=== PATIENT | female | born 1980 | race Caucasian/White ===

== ENCOUNTER 2017-10-06 19:51 | Emergency (ER) | payer OTHER ==
[2017-10-06 20:11] VITALS: BP 121/67; PULSE 103; TEMP 98.4; BMI 31.6
--- NOTE | 2017-10-06 20:15 | PDOC ---
Rapid Medical Evaluation Chief Complaint: Pain Time Seen by Provider: 10/06/17 20:10 Medical Evaluation: Allergies Allergy/AdvReac Type Severity Reaction Status Date / Time No Known Allergies Allergy Verified 10/06/17 20:09 10/06/17 20:10 The patient presents with a chief complaint of: [Left Lower abdominal pain since this am with nausea. Feels tightening around the back recent US showed " some bleeding"] I have performed a brief in-person evaluation of this patient. Pertinent physical exam findings: vss, [LLQ Pain. No CVa tenderness. Lungs clear.] I have ordered the following: [UA, UC, Beta. Type and screen, ] The patient will proceed to the ED for further evaluation. Discharge Disposition - Diagnosis Abdominal pain - Referrals - Patient Instructions - Post Discharge Activity
[2017-10-06 20:42] LABS: BASO % 0.3 % (0-2.0); EOS % 0.7 % (0-4.5); HEMATOCRIT 33.2 % (32.4-45.2); HEMOGLOBIN 11.2 GM/dL (10.7-15.3); LYMPH % 21.9 % (8-40); MCH 29.5 pg (25.7-33.7); MCHC 33.6 g/dl (32.0-36.0); MEAN CELL VOLUME 87.9 fl (80-96); MEAN PLT VOLUME 6.6 fl (7.5-11.1); MONO % 7.5 % (3.8-10.2); NEUT % 69.6 % (42.8-82.8); PLATELET COUNT 392 K/MM3 (134-434); RBC 3.78 M/mm3 (3.60-5.2); RDW 15.8 % (11.6-15.6)
[2017-10-06 20:45] LABS: URINE APPEARANCE SLCLOUDY; URINE BILIRUBIN NEGATIVE (NEGATIVE); URINE BLOOD 1+ (NEGATIVE); URINE COLOR YELLOW; URINE GLUCOSE (UA) NEGATIVE (NEGATIVE); URINE KETONE NEGATIVE (NEGATIVE); URINE NITRITE NEGATIVE (NEGATIVE); URINE PROTEIN NEGATIVE (NEGATIVE)
[2017-10-06 20:47] LABS: URINE LEUK ESTERASE 1+ (NEGATIVE)
[2017-10-06] MEDS ORDERED: ACETAMINOPHEN 325 MG TABLET (FP) PO ONE (21:22)
--- NOTE | 2017-10-06 21:31 | PDOC ---
History of Present Illness - General Chief Complaint: Pain Stated Complaint: ABD PAIN (17 WKS ) Time Seen by Provider: 10/06/17 20:10 - History of Present Illness Initial Comments: Ms Marshall is a 27yo w/ an IUP @17weeks who presents with sudden onset sharp LLQ pain. Pain started today, was initially intermittent, but is now constant. Pain radiates to the groin, also associated with bilateral lower back pain. Pain is worse w/ movements, some relief w/ Tylenol. Had prior kidney stones that passed spontaneously, current pain is similar. Patient had an ultrasound this that confirmed intrauterine location. She endorses minimal vaginal spotting present throughout the , no increase in vaginal bleeding, no fluid, no discharge. She denies dysuria, frequency, urgency, fevers chills. She had an appendectomy as a child. She denies CP, SOB, nausea, vomitting, diarrhea, constipation PMD - Dr Essence Hooper SH - Denies alcohol, smoking, drugs Allergies - NKDA Past History - Past Medical History Allergies/Adverse Reactions: Allergies Allergy/AdvReac Type Severity Reaction Status Date / Time No Known Allergies Allergy Verified 10/06/17 20:09 Home Medications: Ambulatory Orders No Home Medications 0 dose .ROUTE UTDICT 03/05/14 COPD: No - Surgical History Appendectomy: Yes - Immunization History Immunization Up to Date: Yes - Suicide/Smoking/Psychosocial Hx Smoking History: Never smoked Number of Cigarettes Smoked Daily: 0 Hx Alcohol Use: No Drug/Substance Use Hx: No Substance Use Type: None Hx Substance Use Treatment: No *Physical Exam - Vital Signs Last Vital Signs Temp Pulse Resp BP Pulse Ox 98.4 F 103 H 18 121/67 99 10/06/17 20:09 10/06/17 20:09 10/06/17 20:09 10/06/17 20:09 10/06/17 20:09 - Physical Exam Comments: GEN: AAOx3, NAD, Lying comfortably HEENT: PERRLA, EOMi CV: S1, S2, RRR LUNG: CTABL ABD: Gravid, Soft, NT, ND MSK: No edema, no erythema NEURO: CN 2-12 intact ED Treatment Course - LABORATORY CBC & Chemistry Diagram: 10/06/17 20:22 10/06/17 20:22 - ADDITIONAL ORDERS Additional order review: Laboratory Results 10/06/17 20:15 Urine Color Yellow Urine Appearance Slcloudy Urine pH 6.0 Ur Specific [place] 1.025 Urine Protein Negative Urine Glucose (UA) Negative Urine Ketones Negative Urine Blood 1+ H Urine Nitrite Negative Urine Bilirubin Negative Urine Urobilinogen 2.0 H Ur Leukocyte Esterase 1+ H 10/06/17 20:22 RBC 3.78 MCV 87.9 MCHC 33.6 RDW 15.8 H D MPV 6.6 L Neutrophils % 69.6 Lymphocytes % 21.9 Monocytes % 7.5 Eosinophils % 0.7 Basophils % 0.3 - RADIOLOGY Radiology Studies Ordered: Category Date Time Status KIDNEY / RENAL US [US] Stat Ultrasound 10/06/17 21:21 Ordered PELVIC / BLADDER US [US] Stat Ultrasound 10/06/17 21:21 Ordered Medical Decision Making - Medical Decision Making 37yo w/ IUP @ 17weeks presents with sharp LLQ pain. Labs drawn in [facility]ME. Shows mild leukocytosis. UA 1+ leuk esterase, 1+ blood DDx include: Nephrolithiasis, UTI, Round ligament pain -- Pelvic/Bladder/Renal sono -- IVNS 1L Bolus -- Tylenol for pain, if not controlled, will give morphine *DC/Admit/Observation/Transfer Diagnosis at time of Disposition: Round ligament pain - Discharge Dispostion Disposition: HOME Condition at time of disposition: Improved Admit: No - Referrals Referrals: Essence Hooper [Primary Care Provider] - 1 week - Patient Instructions Printed Discharge Instructions: DI for Abdominal Pain -- Early - Post Discharge Activity Forms/Work/School Notes: Back to Work
[2017-10-06 21:39] LABS: EPI CELLS FEW /HPF (FEW); URINE BACTERIA RARE /hpf (NONE SEEN); URINE MUCUS MODERATE
[2017-10-06] MEDS ORDERED: SODIUM CHLORIDE 1,000 ML IV STA (21:41)
[2017-10-06 21:48] LABS: ALBUMIN 2.9 g/dl (3.4-5.0); ALK PHOS 64 U/L (45-117); ANION GAP 7 (8-16); BILIRUBIN,TOTAL 0.2 mg/dL (0.2-1.0); BLOOD UREA NITROGEN 10 mg/dL (7-18); CALCIUM 7.7 mg/dL (8.5-10.1); CHLORIDE 107 mmol/L (98-107); CO2 25 mmol/L (21-32); CREATININE 0.5 mg/dL (0.55-1.02); GLUCOSE,RANDOM 83 mg/dL (74-106); POTASSIUM 3.6 mmol/L (3.5-5.1); SGOT/AST 13 U/L (15-37); SGPT/ALT 18 U/L (12-78); SODIUM 139 mmol/L (136-145); TOT PROT 6.6 g/dl (6.4-8.2)
[2017-10-06] MEDS ORDERED: ACETAMINOPHEN 325 MG TABLET (FP) ONE (22:19)
--- NOTE | 2017-10-06 23:00 | PDOC ---
Attending Attestation - Resident Resident Name: Kamini Avery - ED Attending Attestation I have performed the following: I have examined & evaluated the patient, The case was reviewed & discussed with the resident, I agree w/resident's findings & plan, Exceptions are as noted - HPI HPI: 10/06/17 22:57 37yoF at 17w by dates presents w/ acute onset of LLQ pain today. Hx of kid stones, no fevers, hx of appendectomy, NO vag bleeding/discharge (had some spotting around 10w gestation), no n/v/d, no cp/sob, no syncope, + active fetus , no cramping. Pain is CONSTANT and POSITIONAL, relieved by hunching forward in chair. pmhx as per res note shx as per res note NKDA VS reviewed, as charted NAD gravid, mild LLQ ttp, no guarding, no rebound no cvat A: 37yoF @ 17w gestation w/ constant llq pain x today, afebrile. hx of kid stones, ddx kid stone vs round ligament pain - ua - renal sono - tylenol, ivf - dispo per results. - Physicial Exam PE: 10/06/17 23:00 see above - Medical Decision Making 10/06/17 23:00 see above
== END 2017-10-06 23:40 | disposition home or self-care (01) ==
LOC: JER 19:51
DX: O26.892 Other specified pregnancy related conditions, second trimester (principal); R10.2 Pelvic and perineal pain; Z3A.17 17 weeks gestation of pregnancy
CPT/HCPCS: 36415; 76775-TC; 76856-TC; 80053; 81003; 81015; 84702; 85025; 86850; 86900; 86901; 87086; 99282-25

== ENCOUNTER 2019-05-31 09:07 | Emergency (ER) | payer SELFPAY ==
[2019-05-31 09:33] VITALS: BMI 30.7
[2019-05-31 11:06] LABS: BASO % 0.4 % (0-2.0); EOS % 0.8 % (0-4.5); HEMATOCRIT 37.9 % (32.4-45.2); HEMOGLOBIN 12.8 GM/dL (10.7-15.3); LYMPH % 26.9 % (8-40); MCH 30.8 pg (25.7-33.7); MCHC 33.9 g/dl (32.0-36.0); MEAN CELL VOLUME 90.8 fl (80-96); MEAN PLT VOLUME 6.6 fl (7.5-11.1); MONO % 7.9 % (3.8-10.2); PLATELET COUNT 390 K/MM3 (134-434); RBC 4.17 M/mm3 (3.60-5.2); RDW 12.5 % (11.6-15.6); WHITE BLOOD COUNT 10.7 K/mm3 (4.0-10.0)
[2019-05-31 11:37] LABS: ALBUMIN 3.5 g/dl (3.4-5.0); BILIRUBIN,TOTAL 0.4 mg/dL (0.2-1); BLOOD UREA NITROGEN 17.2 mg/dL (7-18); CALCIUM 8.6 mg/dL (8.5-10.1); CREATININE 0.7 mg/dL (0.55-1.3); POTASSIUM 3.7 mmol/L (3.5-5.1)
--- NOTE | 2019-05-31 11:40 | PDOC ---
History of Present Illness - General Chief Complaint: Pain Stated Complaint: CHEST PAIN Time Seen by Provider: 05/31/19 10:23 History Source: Patient Exam Limitations: No Limitations - History of Present Illness Initial Comments: 05/31/19 10:27 39-year-old female presents to ED with complaints of lower extremity edema intermittently over the past few months worse around her menstrual cycle. Patient also complaining of left arm pain intermittently for the past 3 months that radiated to her left chest 3 days ago. Patient states has been under a lot of stress going through a divorce and feels overwhelmed and anxious at times. Patient denies weight change, difficulty breathing, chest pain, palpitations, dizziness, rash, heavy menstrual cycle, recent travel, or recent illness. Is this a multiple visit Asthma Patient?: No Timing/Duration: other Severity: mild Associated Symptoms: reports: denies symptoms Past History - Travel Traveled outside of the country in the last 30 days: No Close contact w/someone who was outside of country & ill: No - Past Medical History Allergies/Adverse Reactions: Allergies Allergy/AdvReac Type Severity Reaction Status Date / Time No Known Allergies Allergy Verified 05/31/19 09:33 Home Medications: Ambulatory Orders No Home Medications 0 dose .ROUTE UTDICT 03/05/14 COPD: No - Surgical History Appendectomy: Yes - Immunization History Immunization Up to Date: Yes - Suicide/Smoking/Psychosocial Hx Smoking History: Never smoked Number of Cigarettes Smoked Daily: 0 Information on smoking cessation initiated: No Hx Alcohol Use: No Drug/Substance Use Hx: No Substance Use Type: None Hx Substance Use Treatment: No Patient Lives Alone: No Lives with/in: spouse/SO Review of Systems - Review of Systems Able to Perform ROS?: No Is the patient limited Indian proficient: No Constitutional: No: Symptoms Reported HEENTM: No: Symptoms Reported Respiratory: No: Symptoms reported Cardiac (ROS): Yes: Edema ABD/GI: No: Symptoms Reported : No: Symptoms Reported Musculoskeletal: Yes: Muscle Pain (sheba legs and left arm) Integumentary: No: Symptoms Reported Neurological: No: Symptoms reported Psychiatric: Yes: Stressors, Sleep Pattern Change, Change in Appetite Endocrine: No: Symptoms Reported Hematologic/Lymphatic: No: Symptoms Reported *Physical Exam - Vital Signs Last Vital Signs Temp Pulse Resp BP Pulse Ox 98.2 F 91 H 18 108/63 100 05/31/19 09:32 05/31/19 09:32 05/31/19 09:32 05/31/19 09:32 05/31/19 09:32 - Physical Exam General Appearance: Yes: Nourished, Appropriately Dressed. No: Apparent Distress HEENT: negative: Pale Conjunctivae Neck: positive: Normal Thyroid, Supple Respiratory/Chest: positive: Lungs Clear, Normal Breath Sounds. negative: Respiratory Distress, Accessory Muscle Use Cardiovascular: positive: Regular Rhythm, Regular Rate. negative: Murmur Gastrointestinal/Abdominal: positive: Soft. negative: Tenderness Extremity: positive: Normal Capillary Refill, Normal Inspection, Normal Range of Motion. negative: Tender, Pedal Edema Integumentary: positive: Normal Color, Warm, Moist Neurologic: positive: Motor Strength 5/5 (ambulatory) Heart Score/ECG Review - ECG Intrepretation Rhythm: Regular Rhythm (Rate 86, sinus rhythm interval is regular. No ST elevation or depression.) ED Treatment Course - LABORATORY CBC & Chemistry Diagram: 05/31/19 10:44 05/31/19 10:44 - ADDITIONAL ORDERS Additional order review: 05/31/19 10:44 RBC 4.17 MCV 90.8 MCHC 33.9 RDW 12.5 D MPV 6.6 L Neutrophils % 64.0 Lymphocytes % 26.9 D Monocytes % 7.9 Eosinophils % 0.8 Basophils % 0.4 Medical Decision Making - Medical Decision Making 05/31/19 10:44 Chief complaint Intermittent lower extremity swelling for the past 3 months worse with menstrual cycles. Patient also states for the past week has had left arm pain . Exam: No abnormal findings. Vital signs stable EKG showed normal sinus rhythm Plan: Labs, urine 05/31/19 12:26 Laboratory Tests 05/31/19 05/31/19 05/31/19 10:44 10:44 10:56 WBC 10.7 H Hgb 12.8 Hct 37.9 Absolute Neuts (auto) 6.9 Sodium 141 Potassium 3.7 Chloride 104 Carbon Dioxide 30 Anion Gap 6 L BUN 17.2 Creatinine 0.7 Est GFR (CKD-EPI)AfAm 126.49 Est GFR (CKD-EPI)NonAf 109.14 Random Glucose 62 L Calcium 8.6 Total Bilirubin 0.4 AST 14 L ALT 19 Urine Ketones Urine Blood Urine Nitrite Urine Urobilinogen Ur Leukocyte Esterase Urine WBC (Auto) Urine Casts (Auto) U Epithel Cells (Auto) Urine Bacteria (Auto) Urine HCG, Qual Negative 05/31/19 10:56 WBC Hgb Hct Absolute Neuts (auto) Sodium Potassium Chloride Carbon Dioxide Anion Gap BUN Creatinine Est GFR (CKD-EPI)AfAm Est GFR (CKD-EPI)NonAf Random Glucose Calcium Total Bilirubin AST ALT Urine Ketones Trace H Urine Blood 1+ H Urine Nitrite Negative Urine Urobilinogen 1.0 Ur Leukocyte Esterase Trace Urine WBC (Auto) 8 Urine Casts (Auto) 14 U Epithel Cells (Auto) 14.1 Urine Bacteria (Auto) 176.5 Urine HCG, Qual Pt to avoid salt to her menstrual cycles and if she notes the swelling to come to the ER immediately to redraw labs to see if there is any different from labs drawn today. Patient also mentions left elbow pain upon exit exam which appears to be tendinitis/ tennis elbow. Patient will be given instructions recommendations for the above. *DC/Admit/Observation/Transfer Diagnosis at time of Disposition: Edema - Discharge Dispostion Disposition: HOME Condition at time of disposition: Good - Referrals - Patient Instructions Printed Discharge Instructions: DI for Peripheral Edema -- Bilateral, DI for Lateral Epicondylitis (Tennis Elbow) Additional Instructions: Please try avoiding salt during her menstrual cycle. Also remembered to return to the ED during episodes of swelling. In regards to your elbow I have enclosed information about tendinitis recommending to avoid overusage and taking NSAID such as Tylenol or Motrin. - Post Discharge Activity
[2019-05-31 12:10] LABS: EPI CELLS 14.1 /HPF (0-5/HPF); HYALINE CASTS 14 /lpf (0-8); URINE APPEARANCE CLOUDY; URINE BACTERIA 176.5 /hpf (NEGATIVE); URINE BILIRUBIN NEGATIVE (NEGATIVE); URINE COLOR YELLOW; URINE GLUCOSE (UA) NEGATIVE (NEGATIVE); URINE KETONE TRACE (NEGATIVE); URINE LEUK ESTERASE TRACE (NEGATIVE); URINE NITRITE NEGATIVE (NEGATIVE); URINE PROTEIN NEGATIVE (NEGATIVE); URINE WBC 8 /hpf (0-5)
[2019-05-31 12:36] LABS: URINE RBC 19.9 /hpf (0-4); YEAST NONE SEEN (NEGATIVE)
[2019-05-31 12:47] VITALS: BP 111/61; PULSE 65; TEMP 97.9
--- NOTE | 2019-05-31 18:23 | EKG ---
Test Reason : Blood Pressure : / mmHG Vent. Rate : 086 BPM Atrial Rate : 086 BPM P-R Int : 160 ms QRS Dur : 072 ms QT Int : 386 ms P-R-T Axes : 063 044 066 degrees QTc Int : 461 ms NORMAL SINUS RHYTHM NORMAL ECG WHEN COMPARED WITH ECG OF 25-JUL-2014 20:48, NO SIGNIFICANT CHANGE WAS FOUND Confirmed by SARKIS JUAN MD ([id number]) on 05/31/2019 6:22:45 PM Referred By: Confirmed By:SARKIS JUAN MD
== END 2019-05-31 12:45 | disposition home or self-care (01) ==
LOC: JER 09:07
DX: R60.0 Localized edema (principal); M77.12 Lateral epicondylitis, left elbow
CPT/HCPCS: 36415; 80053; 81003; 84703; 85025; 87086; 93005; 93010; 99282-25